=== PATIENT | female | born 1970 | race Caucasian/White ===

== ENCOUNTER → 2016-12-14 | Outpatient (CLI) | payer SELFPAY ==
--- NOTE | 2016-12-15 10:14 | MM ---
Reason for exam: screening (asymptomatic). Last mammogram was performed 1 year and 1 month ago. History: Patient is postmenopausal. Family history of breast cancer in maternal aunt at age 75, breast cancer in paternal grandmother at age 92, and breast cancer in maternal grandmother at age 35. Benign left mammotome panel of the left breast, December 27, 2011. Benign excisional biopsy of the right breast, 1996. Physical Findings: A clinical breast exam by your physician is recommended on an annual basis and results should be correlated with mammographic findings. MG Screening Mammo w CAD Bilateral CC and MLO view(s) were taken. Prior study comparison: November 11, 2015, bilateral MG screening mammo w CAD. August 05, 2014, bilateral MG screening mammo w CAD. There are scattered fibroglandular densities. Finding: There is an equal density (isodense), indistinct round mass in the upper inner quadrant, middle position of the left breast, 8cm from the nipple. There is a chronic nodularity in the right breast. New finding since November 11, 2015 and August 05, 2014. ASSESSMENT: Incomplete: need additional imaging evaluation, BI-RAD 0 RECOMMENDATION: Special view mammogram of the left breast. If lesion persists on supplemental views, image directed ultrasound is recommended. [facility] will attempt to contact patient to return for supplemental views and ultrasound if indicated.
== END | disposition home or self-care (01) ==
LOC: RADMAMWWP 13:15
PROVIDERS: ATTEND Family Medicine
DX: Z12.31 Encounter for screening mammogram for malignant neoplasm of breast (principal)

== ENCOUNTER → 2016-12-22 | Outpatient (CLI) | payer SELFPAY ==
--- NOTE | 2016-12-22 13:27 | MM ---
Reason for exam: additional evaluation requested from abnormal screening. Last mammogram was performed less than 1 month ago. History: Patient is postmenopausal. Family history of breast cancer in maternal aunt at age 75, breast cancer in paternal grandmother at age 92, and breast cancer in maternal grandmother at age 35. Benign left mammotome panel of the left breast, December 27, 2011. Benign excisional biopsy of the right breast, 1996. Physical Findings: Nurse did not find any significant physical abnormalities on exam. MG Work Up Mamm w CAD LT Spot compression CC, spot compression MLO, and ML view(s) were taken of the left breast. Prior study comparison: December 14, 2016, bilateral MG screening mammo w CAD. November 11, 2015, bilateral MG screening mammo w CAD. August 05, 2014, bilateral MG screening mammo w CAD. June 10, 2013, CAD bilateral diagnostic mammogram. There are scattered fibroglandular densities. The questioned focal asymmetry does not appear to persist on additional views suggesting summation shadow, a precautionary 6 month follow up is recommended. These results were verbally communicated with the patient and result sheet given to the patient on 12/22/16. ASSESSMENT: Probably benign, BI-RAD 3 RECOMMENDATION: Follow-up diagnostic mammogram of the left breast in 6 months.
== END | disposition home or self-care (01) ==
LOC: RADMAMWWP 12:42
PROVIDERS: ATTEND Family Medicine
DX: R92.8 Other abnormal and inconclusive findings on diagnostic imaging of breast (principal)

== ENCOUNTER 2017-04-27 16:12 | Emergency (ER) | payer BC ==
[2017-04-27] MEDS ORDERED: PROPARACAINE 0.5% OPHTH DROPS 15 ML BTL LEFT EYE STA (16:48)
--- NOTE | 2017-04-27 17:00 | ED ---
Eye Problem HPI <ChapinFrank - Last Filed: 04/27/17 18:57> - General Source: patient, RN notes reviewed Mode of arrival: ambulatory Limitations: no limitations <Andree Maynard - Last Filed: 04/27/17 20:56> - General Chief complaint: Eye Problems Stated complaint: Poss Mini Stroke Time Seen by Provider: 04/27/17 16:29 - History of Present Illness Initial comments: Patient is a 47-year-old female presents to the emergency room for evaluation of changes in vision. Patient states last year she was diagnosed with a possible mini stroke. Patient states then she had changes in vision in her left eye. Patient states it looked like she was pearing through a kaleidoscope. Patient states that it lasted about 10 minutes and symptoms completely resolved. Patient states she hasn't had any symptoms since until Monday. Patient states on Monday after having sexual intercourse with her she was sitting on the couch and noticed the kaleidoscope-like vision in her left eye. Patient states that the sensation has not subsided. Patient stated this has been going on for the past 5 days. Patient denies paresthesias. Patient denies unilateral weakness. Patient states her left eye does not feel right. Patient states she's having pressure behind her left eye. Patient denies taking any medications. Patient denies new medications. Patient denies wearing glasses or contacts. Patient did state she called her primary care provider this week and has an appointment next week but symptoms worsened today. Patient states she's having a minor headache. Patient states she quit smoking about a year ago. Patient denies alcohol or illicit drug use. (Andree Maynard) - Related Data Home Medications Medication Instructions Recorded Confirmed ALPRAZolam [Xanax] 0.25 mg PO DAILY PRN 04/27/17 04/27/17 Cetirizine HCl [Zyrtec] 10 mg PO HS 04/27/17 04/27/17 Cholecalciferol [Vitamin D3] 1,000 unit PO HS 04/27/17 04/27/17 [place]-3 Fatty Acids/Fish Oil [Fish 1 cap PO HS 04/27/17 04/27/17 Oil 1,000 mg Capsule] Allergies Allergy/AdvReac Type Severity Reaction Status Date / Time No Known Allergies Allergy Verified 04/27/17 16:59 Review of Systems ROS Other: All systems not noted in ROS Statement are negative. <Frank Chapin - Last Filed: 04/27/17 18:57> ROS Other: All systems not noted in ROS Statement are negative. <Andree Maynard - Last Filed: 04/27/17 20:56> ROS Statement: Those systems with pertinent positive or pertinent negative responses have been documented in the HPI. Past Medical History Past Medical History: CVA/TIA History of Any Multi-Drug Resistant Organisms: None Reported Additional Past Surgical History / Comment(s): cyst removed Past Psychological History: No Psychological Hx Reported Smoking Status: Former smoker Past Alcohol Use History: None Reported Past Drug Use History: None Reported <Andree Maynard - Last Filed: 04/27/17 20:56> General Exam <Frank Chapin - Last Filed: 04/27/17 18:57> Limitations: no limitations General appearance: alert, in no apparent distress Head exam: Present: atraumatic, normocephalic, normal inspection Eye exam: Present: normal appearance, PERRL, EOMI Pupils: Present: normal accommodation Expanded Visual acuity (R) = 20/: 15 Visual acuity (L) = 20/: 70 With correction: No IOP (R) in mmH IOP (L) in mmH IOP measured with: [place] ENT exam: Present: normal exam, mucous membranes moist. Absent: normal oropharynx, TM's normal bilaterally Neck exam: Present: normal inspection. Absent: tenderness Respiratory exam: Present: normal lung sounds bilaterally. Absent: respiratory distress Cardiovascular Exam: Present: regular rate, normal rhythm, normal heart sounds Back exam: Present: normal inspection Neurological exam: Present: alert, oriented X3, CN II-XII intact Expanded Patient oriented to: Present: person, place, time Speech: Present: fluid speech Cranial nerves: EOM's Intact: Normal, Facial Sensation: Normal Sensory exam: Upper Extremity Light Touch: Normal, Lower Extremity Light Touch: Normal Motor strength exam: RUE: 5, LUE: 5, RLE: 5, LLE: 5 Eye Response: (4) open spontaneously Motor Response: (6) obeys commands Verbal Response: (5) oriented Psychiatric exam: Present: normal affect, normal mood Skin exam: Present: warm, dry, intact, normal color. Absent: rash <Andree Maynard - Last Filed: 04/27/17 20:56> - General Exam Comments Initial Comments: sitting in exam room, no distress. (Andree Maynard) Medical Decision Making - Lab Data Result diagrams: 04/27/17 16:53 04/27/17 16:53 <Frank Chapin - Last Filed: 04/27/17 18:57> - Lab Data Result diagrams: 04/27/17 16:53 04/27/17 16:53 - Radiology Data Radiology results: report reviewed, image reviewed <Anrdee Maynard - Last Filed: 04/27/17 20:56> - Medical Decision Making Patient reevaluated by myself, Dr. Chapin. Patient resting comfortably in bed. I shocks her muscles intact. Pupils equal round reactive to light. Funduscopic exam without acute findings on the left. Patient states 3 days ago she had sudden episode of blurry vision still is similar to look into a kaleidoscope lasted around 10 minutes. Patient states she has had minimal worsening of her chronic decreased left vision since that time. Patient only complains of minimal discomfort in the left eye. Case was discussed in detail with Dr. abrams will follow up with patient in the morning. (Frank Chapin) - Lab Data Lab Results 04/27/17 04/27/17 04/27/17 Range/Units 16:53 16:53 16:53 WBC 7.4 (3.8-10.6) k/uL RBC 4.42 (3.80-5.40) m/uL Hgb 13.1 (11.4-16.0) gm/dL Hct 39.8 (34.0-46.0) % MCV 90.2 (80.0-100.0) fL MCH 29.7 (25.0-35.0) pg MCHC 32.9 (31.0-37.0) g/dL RDW 13.5 (11.5-15.5) % Plt Count 404 (150-450) k/uL Neutrophils % 68 % Lymphocytes % 26 % Monocytes % 4 % Eosinophils % 1 % Basophils % 1 % Neutrophils # 5.0 (1.3-7.7) k/uL Lymphocytes # 1.9 (1.0-4.8) k/uL Monocytes # 0.3 (0-1.0) k/uL Eosinophils # 0.0 (0-0.7) k/uL Basophils # 0.0 (0-0.2) k/uL PT (9.0-12.0) sec INR (<1.1) APTT (22.0-30.0) sec Sodium 143 (137-145) mmol/L Potassium 4.4 (3.5-5.1) mmol/L Chloride 106 (98-107) mmol/L Carbon Dioxide 26 (22-30) mmol/L Anion Gap 11 mmol/L BUN 19 H (7-17) mg/dL Creatinine 0.81 (0.52-1.04) mg/dL Est GFR (MDRD) Af Amer >60 (>60 ml/min/1.73 sqM) Est GFR (MDRD) Non-Af >60 (>60 ml/min/1.73 sqM) Glucose 104 H (74-99) mg/dL POC Glucose (mg/dL) (75-99) mg/dL POC Glu Programmer Developer ID Calcium 9.6 (8.4-10.2) mg/dL Total Bilirubin 0.6 (0.2-1.3) mg/dL AST 26 (14-36) U/L ALT 30 (9-52) U/L Alkaline Phosphatase 102 (38-126) U/L Total Creatine Kinase 100 (30-135) U/L CK-MB (CK-2) 0.3 (0.0-2.4) ng/mL CK-MB (CK-2) Rel Index 0.3 Troponin I <0.012 (0.000-0.034) ng/mL Total Protein 7.9 (6.3-8.2) g/dL Albumin 4.8 (3.5-5.0) g/dL 04/27/17 04/27/17 Range/Units 16:53 17:59 WBC (3.8-10.6) k/uL RBC (3.80-5.40) m/uL Hgb (11.4-16.0) gm/dL Hct (34.0-46.0) % MCV (80.0-100.0) fL MCH (25.0-35.0) pg MCHC (31.0-37.0) g/dL RDW (11.5-15.5) % Plt Count (150-450) k/uL Neutrophils % % Lymphocytes % % Monocytes % % Eosinophils % % Basophils % % Neutrophils # (1.3-7.7) k/uL Lymphocytes # (1.0-4.8) k/uL Monocytes # (0-1.0) k/uL Eosinophils # (0-0.7) k/uL Basophils # (0-0.2) k/uL PT 10.8 (9.0-12.0) sec INR 1.1 (<1.1) APTT 25.1 (22.0-30.0) sec Sodium (137-145) mmol/L Potassium (3.5-5.1) mmol/L Chloride (98-107) mmol/L Carbon Dioxide (22-30) mmol/L Anion Gap mmol/L BUN (7-17) mg/dL Creatinine (0.52-1.04) mg/dL Est GFR (MDRD) Af Amer (>60 ml/min/1.73 sqM) Est GFR (MDRD) Non-Af (>60 ml/min/1.73 sqM) Glucose (74-99) mg/dL POC Glucose (mg/dL) 93 (75-99) mg/dL POC Glu Programmer Developer ID Reanna Zaldivar Calcium (8.4-10.2) mg/dL Total Bilirubin (0.2-1.3) mg/dL AST (14-36) U/L ALT (9-52) U/L Alkaline Phosphatase (38-126) U/L Total Creatine Kinase (30-135) U/L CK-MB (CK-2) (0.0-2.4) ng/mL CK-MB (CK-2) Rel Index Troponin I (0.000-0.034) ng/mL Total Protein (6.3-8.2) g/dL Albumin (3.5-5.0) g/dL 04/27/17 18:23 sinus bradycardia with sinus arrhythmia, ventricular rate 57 bpm, RI interval 118 ms, QRS duration 90 ms, QT/QTc 458/445 ms (Andree Maynard) Disposition <Frank Chapin - Last Filed: 04/27/17 18:57> Time of Disposition: 19:00 <Andree Maynard - Last Filed: 04/27/17 20:56> Clinical Impression: Blurry vision, left eye Disposition: HOME SELF-CARE Condition: Good Instructions: Blurred Vision (ED) Additional Instructions: Please follow up with commercial sales director, Dr. Oneil at 9 AM tomorrow morning. If any new symptom arises or symptoms worsen, return to ER as soon as possible. Referrals: Cain Oneil MD [STAFF PHYSICIAN] - 1-2 days
[2017-04-27 17:12] LABS: Basophils % (A) 1 %; CH 29.3; CHCM 32.7; Eosinophils % (A) 1 %; HCT 39.8 % (34.0-46.0); HDW 2.28; HGB 13.1 gm/dL (11.4-16.0); Luc # (Auto) 0.11; Luc % (Auto) 1; Lymphocytes # (A) 1.9 k/uL (1.0-4.8); Lymphocytes % (A) 26 %; MCH 29.7 pg (25.0-35.0); MCHC 32.9 g/dL (31.0-37.0); MCV 90.2 fL (80.0-100.0); Mean Platelet Volume 6.5; Monocytes # (A) 0.3 k/uL (0-1.0); Monocytes % (A) 4 %; Neutrophils % (A) 68 %; RBC 4.42 m/uL (3.80-5.40); RDW 13.5 % (11.5-15.5); WBC 7.4 k/uL (3.8-10.6); WBC (Perox) 7.39
[2017-04-27 17:19] LABS: INR 1.1 (<1.1); Partial Thromboplastin Time 25.1 sec (22.0-30.0); Prothrombin Time 10.8 sec (9.0-12.0)
[2017-04-27 17:21] LABS: ALT 30 U/L (9-52); AST 26 U/L (14-36); Alkaline Phosphatase 102 U/L (38-126); Anion Gap 11 mmol/L; Blood Urea Nitrogen 19 mg/dL (7-17); Calcium 9.6 mg/dL (8.4-10.2); Carbon Dioxide 26 mmol/L (22-30); Chloride 106 mmol/L (98-107); Glucose 104 mg/dL (74-99); Non-African American GFR(MDRD) >60 (>60 ml/min/1.73 sqM); Potassium 4.4 mmol/L (3.5-5.1); Sodium 143 mmol/L (137-145); Total Bilirubin 0.6 mg/dL (0.2-1.3); Total Protein 7.9 g/dL (6.3-8.2)
[2017-04-27 17:30] LABS: Creatine Kinase 100 U/L (30-135)
[2017-04-27 17:43] LABS: Creatine Kinase MB 0.3 ng/mL (0.0-2.4); Troponin I <0.012 ng/mL (0.000-0.034)
--- NOTE | 2017-04-27 17:43 | CT ---
EXAMINATION TYPE: CT brain wo con DATE OF EXAM: 04/27/2017 COMPARISON: NONE HISTORY: History of TIA. Dizziness, nausea and visual disturbances today. CT DLP: 999.80 mGycm Automated exposure control for dose reduction was used. FINDINGS: Ventricles and sulci appear normal. There is no mass effect nor midline shift. There is no sign of in tracranial hemorrhage. The calvarium is intact. IMPRESSION: Negative unenhanced head CT scan.
[2017-04-27 18:01] VITALS: BP 138/71; RESP 18
[2017-04-27 18:03] LABS: Glucose,Whole Blood 93 mg/dL (75-99)
[2017-04-27 19:13] VITALS: PULSE 54; TEMP 98.6
== END 2017-04-27 19:13 | disposition home or self-care (01) ==
LOC: EC 16:12
DX: H53.8 Other visual disturbances (principal); R51 Headache; Z87.891 Personal history of nicotine dependence; Z79.899 Other long term (current) drug therapy; Z86.73 Personal history of transient ischemic attack (TIA), and cerebral infarction without residual deficits
CPT/HCPCS: 36415; 70450; 80053; 82550; 82553; 84484; 85025; 85610; 85730; 93005; 99284

== ENCOUNTER → 2018-05-15 | Outpatient (CLI) | payer BC ==
--- NOTE | 2018-05-15 14:02 | MM ---
Reason for exam: additional evaluation requested from prior study. Last mammogram was performed 1 year and 5 months ago. History: Patient is postmenopausal. Family history of breast cancer in maternal aunt at age 75, breast cancer in paternal grandmother at age 92, and breast cancer in maternal grandmother at age 35. Benign left mammotome panel of the left breast, December 27, 2011. Benign excisional biopsy of the right breast, 1996. Physical Findings: Nurse did not find any significant physical abnormalities on exam. MG Diagnostic Mammo w CAD SERGIO Bilateral CC and MLO view(s) were taken. Prior study comparison: December 22, 2016, left breast MG work up mamm w CAD LT. December 14, 2016, bilateral MG screening mammo w CAD. The breast tissue is heterogeneously dense. This may lower the sensitivity of mammography. Previous mammotome biopsy in the left breast. There is no discrete abnormality. No significant new findings when compared with previous films. These results were verbally communicated with the patient and result sheet given to the patient on 05/15/18. ASSESSMENT: Negative, BI-RAD 1 RECOMMENDATION: Routine screening mammogram of both breasts in 1 year.
== END | disposition home or self-care (01) ==
LOC: RADMAMWWP 13:22
PROVIDERS: ATTEND Family Medicine
DX: R92.8 Other abnormal and inconclusive findings on diagnostic imaging of breast (principal)
CPT/HCPCS: 77066

== ENCOUNTER 2019-07-16 16:03 | Observation (INO) | payer BC ==
[2019-07-16] MEDS ORDERED: NITROGLYCERIN OINT 1 INCH/GM PACKET TOPICAL STA (16:55)
[2019-07-16] MEDS ORDERED: ASPIRIN 81 MG PO STA (16:55)
--- NOTE | 2019-07-16 16:58 | ED ---
General Adult HPI - General Chief complaint: Chest Pain Stated complaint: chest pain Time Seen by Provider: 07/16/19 16:19 Source: patient, RN notes reviewed Mode of arrival: wheelchair Limitations: no limitations - History of Present Illness Initial comments: Patient is a pleasant 49-year-old female presenting to the emergency Department with complaints of chest discomfort. Onset of symptoms was a couple of days ago. Discomfort is waxing and waning. [place] seems to help a little bit for a very short period of time. Patient does have associated dyspnea, nausea, and sweating. Patient also feels fatigued. Patient has been feeling fatigued for the past week or so. No leg pain or leg swelling. No cough or fever. No history of similar symptoms previously. There is some radiation towards the shoulders and back. - Related Data Home Medications Medication Instructions Recorded Confirmed ALPRAZolam [Xanax] 0.25 mg PO DAILY PRN 04/27/17 07/16/19 Hydrocodone/Acetaminophen [[place] 0.5 tab PO DAILY PRN 07/16/19 07/16/19 7.5-325] Allergies Allergy/AdvReac Type Severity Reaction Status Date / Time No Known Allergies Allergy Verified 07/16/19 17:13 Review of Systems ROS Statement: Those systems with pertinent positive or pertinent negative responses have been documented in the HPI. ROS Other: All systems not noted in ROS Statement are negative. Constitutional: Denies: fever Eyes: Denies: eye pain ENT: Denies: ear pain Respiratory: Reports: dyspnea. Denies: cough Cardiovascular: Reports: chest pain Endocrine: Reports: fatigue Gastrointestinal: Reports: nausea. Denies: abdominal pain Genitourinary: Denies: urgency Musculoskeletal: Reports: as per HPI Skin: Denies: rash Neurological: Denies: weakness Past Medical History Past Medical History: CVA/TIA History of Any Multi-Drug Resistant Organisms: None Reported Additional Past Surgical History / Comment(s): cyst removed Past Psychological History: No Psychological Hx Reported Smoking Status: Former smoker Past Alcohol Use History: Rare Past Drug Use History: Marijuana General Exam Limitations: no limitations General appearance: alert, in no apparent distress Head exam: Present: atraumatic Eye exam: Present: normal appearance, PERRL ENT exam: Present: normal oropharynx Neck exam: Present: normal inspection Respiratory exam: Present: normal lung sounds bilaterally, chest wall tenderness (Mild discomfort on palpation.) Cardiovascular Exam: Present: regular rate, normal rhythm Expanded Peripheral pulses: 2+: Radial (R), Radial (L), Dorsalis Pedis (R), Dorsalis Pedis (L) GI/Abdominal exam: Present: soft. Absent: tenderness Extremities exam: Present: normal inspection. Absent: pedal edema, calf tenderness Neurological exam: Present: alert Psychiatric exam: Present: normal affect, normal mood Skin exam: Present: normal color Course Vital Signs 07/16/19 16:06 Temperature 98.8 F Pulse Rate 75 Respiratory 16 Rate Blood Pressure 145/83 O2 Sat by Pulse 100 Oximetry EKG Findings - EKG Comments: EKG Findings:: Normal sinus rhythm 60. VT 122. QRS 86. QT 474. QTC 474. Normal axis. Low QRS voltage. No acute ST change. Medical Decision Making - Medical Decision Making Patient reevaluated and resting comfortably in bed. Patient updated on results and plan. Dr. barrientos paged for admission covering for Dr. King. - Lab Data Result diagrams: 07/16/19 17:27 07/16/19 17:27 Lab Results 07/16/19 07/16/19 07/16/19 Range/Units 17:27 17:27 17:27 WBC 9.5 (3.8-10.6) k/uL RBC 4.90 (3.80-5.40) m/uL Hgb 13.7 (11.4-16.0) gm/dL Hct 43.1 (34.0-46.0) % MCV 88.0 (80.0-100.0) fL MCH 28.0 (25.0-35.0) pg MCHC 31.8 (31.0-37.0) g/dL RDW 13.5 (11.5-15.5) % Plt Count 453 H (150-450) k/uL Neutrophils % 71 % Lymphocytes % 21 % Monocytes % 5 % Eosinophils % 1 % Basophils % 0 % Neutrophils # 6.7 (1.3-7.7) k/uL Lymphocytes # 2.0 (1.0-4.8) k/uL Monocytes # 0.4 (0-1.0) k/uL Eosinophils # 0.1 (0-0.7) k/uL Basophils # 0.0 (0-0.2) k/uL PT 10.8 (9.0-12.0) sec INR 1.0 (<1.2) APTT 26.9 (22.0-30.0) sec D-Dimer 0.19 (<0.60) mg/L FEU Sodium 143 (137-145) mmol/L Potassium 4.1 (3.5-5.1) mmol/L Chloride 109 H (98-107) mmol/L Carbon Dioxide 27 (22-30) mmol/L Anion Gap 7 mmol/L BUN 15 (7-17) mg/dL Creatinine 0.60 (0.52-1.04) mg/dL Est GFR (CKD-EPI)AfAm >90 (>60 ml/min/1.73 sqM) Est GFR (CKD-EPI)NonAf >90 (>60 ml/min/1.73 sqM) Glucose 93 (74-99) mg/dL Calcium 9.5 (8.4-10.2) mg/dL Magnesium 2.0 (1.6-2.3) mg/dL Total Bilirubin 0.5 (0.2-1.3) mg/dL AST 23 (14-36) U/L ALT 23 (9-52) U/L Alkaline Phosphatase 108 (38-126) U/L Troponin I (0.000-0.034) ng/mL Total Protein 7.4 (6.3-8.2) g/dL Albumin 4.5 (3.5-5.0) g/dL Amylase 76 (30-110) U/L Lipase 69 (23-300) U/L 07/16/ Range/Units 17:27 WBC (3.8-10.6) k/uL RBC (3.80-5.40) m/uL Hgb (11.4-16.0) gm/dL Hct (34.0-46.0) % MCV (80.0-100.0) fL MCH (25.0-35.0) pg MCHC (31.0-37.0) g/dL RDW (11.5-15.5) % Plt Count (150-450) k/uL Neutrophils % % Lymphocytes % % Monocytes % % Eosinophils % % Basophils % % Neutrophils # (1.3-7.7) k/uL Lymphocytes # (1.0-4.8) k/uL Monocytes # (0-1.0) k/uL Eosinophils # (0-0.7) k/uL Basophils # (0-0.2) k/uL PT (9.0-12.0) sec INR (<1.2) APTT (22.0-30.0) sec D-Dimer (<0.60) mg/L FEU Sodium (137-145) mmol/L Potassium (3.5-5.1) mmol/L Chloride (98-107) mmol/L Carbon Dioxide (22-30) mmol/L Anion Gap mmol/L BUN (7-17) mg/dL Creatinine (0.52-1.04) mg/dL Est GFR (CKD-EPI)AfAm (>60 ml/min/1.73 sqM) Est GFR (CKD-EPI)NonAf (>60 ml/min/1.73 sqM) Glucose (74-99) mg/dL Calcium (8.4-10.2) mg/dL Magnesium (1.6-2.3) mg/dL Total Bilirubin (0.2-1.3) mg/dL AST (14-36) U/L ALT (9-52) U/L Alkaline Phosphatase (38-126) U/L Troponin I <0.012 (0.000-0.034) ng/mL Total Protein (6.3-8.2) g/dL Albumin (3.5-5.0) g/dL Amylase (30-110) U/L Lipase (23-300) U/L - Radiology Data Radiology results: image reviewed (Chest x-ray shows no acute process) Disposition Clinical Impression: Chest pain Disposition: ADMITTED IP TO THIS HOSP Is patient prescribed a controlled substance at d/c from ED?: No Referrals: Lincoln King MD [Primary Care Provider] - 1-2 days Decision Time: 19:05
[2019-07-16 17:39] LABS: Basophils % (A) 0 %; Eosinophils # (A) 0.1 k/uL (0-0.7); Eosinophils % (A) 1 %; HCT 43.1 % (34.0-46.0); HGB 13.7 gm/dL (11.4-16.0); Lymphocytes % (A) 21 %; MCHC 31.8 g/dL (31.0-37.0); Mean Platelet Volume 6.5; Monocytes # (A) 0.4 k/uL (0-1.0); Monocytes % (A) 5 %; Neutrophils # (A) 6.7 k/uL (1.3-7.7); Neutrophils % (A) 71 %; Platelet Count 453 k/uL (150-450); RDW 13.5 % (11.5-15.5); WBC 9.5 k/uL (3.8-10.6)
[2019-07-16 17:47] LABS: Albumin 4.5 g/dL (3.5-5.0); Amylase 76 U/L (30-110); Chloride 109 mmol/L (98-107); Glucose 93 mg/dL (74-99); Potassium 4.1 mmol/L (3.5-5.1); Total Protein 7.4 g/dL (6.3-8.2)
[2019-07-16 17:48] LABS: ALT 23 U/L (9-52); AST 23 U/L (14-36); African American GFR (CKD) >90 (>60 ml/min/1.73 sqM); Alkaline Phosphatase 108 U/L (38-126); Anion Gap 7 mmol/L; Blood Urea Nitrogen 15 mg/dL (7-17); Calcium 9.5 mg/dL (8.4-10.2); Carbon Dioxide 27 mmol/L (22-30); Sodium 143 mmol/L (137-145); Total Bilirubin 0.5 mg/dL (0.2-1.3)
[2019-07-16 17:51] LABS: D-Dimer 0.19 mg/L FEU (<0.60); Partial Thromboplastin Time 26.9 sec (22.0-30.0); Prothrombin Time 10.8 sec (9.0-12.0)
--- NOTE | 2019-07-16 18:40 | XR ---
EXAMINATION: XR chest 2V DATE AND TIME: 07/16/2019 5:36 PM CLINICAL INDICATION: PHH; Chest Pain TECHNIQUE: Departmental protocol COMPARISON: None FINDINGS: The lungs are clear. The pleural spaces are negative. The cardiac silhouette is not enlarged. The remainder of the mediastinal silhouette is unremarkable. The skeletal structures and soft tissues are negative for acute findings. IMPRESSION: NO ACUTE PROCESS.
[2019-07-16] MEDS ORDERED: NITROGLYCERIN SL TABS 0.4 MG TAB SUBLINGUAL PRN (19:05)
[2019-07-17] MEDS: NITROGLYCERIN OINT 1 INCH/GM PACKET TOPICAL SCH ×2 (00:51→05:49)
[2019-07-17 05:56] LABS: Cholesterol 232 mg/dL (<200); HDL Cholesterol 47 mg/dL (40-60); LDL Cholesterol,Calculated 160 mg/dL (0-99); Triglycerides 127 mg/dL (<150)
[2019-07-17] MEDS ORDERED: SODIUM CHLORIDE 0.9% 1,000 ML IV SCH (08:15)
[2019-07-17] MEDS ORDERED: ASPIRIN 325 MG TAB PO SCH (09:00)
[2019-07-17 09:02] VITALS: RESP 17
[2019-07-17] MEDS ORDERED: HYDROcodone/APAP 7.5-325MG 1 EACH TAB PO PRN (09:47)
[2019-07-17] MEDS ORDERED: ALPRAZolam 0.25 MG TAB PO PRN (09:47)
--- NOTE | 2019-07-17 10:35 | ECHOF ---
Referral Reason:palpitations, pre syncope MEASUREMENTS -------- HEIGHT: 154.9 cm WEIGHT: 65.8 kg BP: RVIDd: 1.9 cm (< 3.3) IVSd: 0.8 cm (0.6 - 1.1) LVIDd: 4.6 cm (3.9 - 5.3) LVPWd: 1.0 cm (0.6 - 1.1) IVSs: 0.9 cm LVIDs: 3.5 cm LVPWs: 1.4 cm LAESV Index (A-L): 13.27 ml/m Ao Diam: 2.6 cm (2.0 - 3.7) AV Cusp: 1.5 cm (1.5 - 2.6) LA Diam: 2.5 cm (2.7 - 3.8) MV EXCURSION: 16.095 mm (> 18.000) MV EF SLOPE: 106 mm/s (70 - 150) EPSS: 1.0 cm MV E Froylan: 1.03 m/s MV DecT: 226 ms MV A Froylan: 0.73 m/s MV E/A Ratio: 1.40 RAP: 5.00 mmHg RVSP: 11.56 mmHg FINDINGS -------- Sinus rhythm. This was a technically good study. The left ventricular size is normal. Left ventricular wall thickness is normal. Overall left vent ricular systolic function is normal with, an EF between 55 - 60 %. The right ventricle is normal in size. The left atrial size is normal. Normal LA size by volume 22+/-6 ml/m2. The right atrial size is normal. Interatrial and interventricular septum intact. The aortic valve is trileaflet and appears structurally normal. The mitral valve is normal. Mild mitral regurgitation is present. The tricuspid valve appears structurally normal. Trace tricuspid regurgitation present. Right xiang tricular systolic pressure is normal at < 35 mmHg. There is no pulmonic regurgitation present. The aortic root size is normal. Normal inferior vena cava with normal inspiratory collapse consistent with estimated right atrial pre ssure of 5 mmHg. There is no pericardial effusion. CONCLUSIONS -------- 1. Sinus rhythm. 2. This was a technically good study. 3. The left ventricular size is normal. 4. Left ventricular wall thickness is normal. 5. Overall left ventricular systolic function is normal with, an EF between 55 - 60 %. 6. The right ventricle is normal in size. 7. The left atrial size is normal. 8. Normal LA size by volume 22+/-6 ml/m2. 9. The right atrial size is normal. 10. Interatrial and interventricular septum intact. 11. The aortic valve is trileaflet and appears structurally normal. 12. The mitral valve is normal. 13. Mild mitral regurgitation is present. 14. The tricuspid valve appears structurally normal. 15. Trace tricuspid regurgitation present. 16. Right ventricular systolic pressure is normal at < 35 mmHg. 17. There is no pulmonic regurgitation present. 18. The aortic root size is normal. 19. Normal inferior vena cava with normal inspiratory collapse consistent with estimated right atrial pressure of 5 mmHg. 20. There is no pericardial effusion. INSTRUCTOR TAP DANCING: Ludivina Arita RDCS
--- NOTE | 2019-07-17 12:37 | ECHOS ---
STRESS ECHOCARDIOGRAM INDICATIONS: Chest pain and fatigue. MEDICATIONS: None. BASELINE HEART RATE: 76 BASELINE BLOOD PRESSURE: 111/60 MAXIMUM HEART RATE: 169 MAXIMUM BLOOD PRESSURE: 144/77 85% MPHR: 145 100% MPHR: 170 METS: 9.0 MAXIMUM STAGE REACHED: III TOTAL EXERCISE TIME: 7.5 CLINICAL INFORMATION: Baseline EKG shows sinus rhythm, normal axis, normal intervals. Patient exercised on Abiel protocol for a total of 7.5 minutes achieving 9 METS, 99% of predicted maximal heart rate without chest pain. There was no ST-segment depression at peak exercise. There was lot of EKG artifact throughout the study. Baseline echo shows normal left ventricular size wall motion and systolic function. Postexercise, there is normal hyperdynamic response of all segments of myocardium noted. CONCLUSIONS: 1. Technically suboptimal study secondary to EKG artifact. 2. Average exercise tolerance. 3. Negative stress test by EKG criteria. 4. Negative stress echo. MMODL / IJN: [id number] /
[2019-07-17 13:24] VITALS: BP 120/78; PULSE 62; TEMP 98.2
--- NOTE | 2019-07-17 13:37 | P.CRDCN ---
History of Present Illness History of present illness: This is a pleasant 49-year-old female past medical history significant for former nicotine dependence. Denies coronary artery disease, hypertension, diabetes mellitus or dyslipideima. We have been asked to see her in consultation for chest pain. She states for the last 2 weeks she has been experiencing increased overall fatigue with no real explanation. She denies any new physical activities or loss of appetite. For the last three nights each time she lays down to sleep she starts feeling her heart racing in an irregular fashion. While this is happening her chest feels tight, overall diaphoretic, light headed and both of her arms feel numb and tingly. Ultimately she falls asleep and her symptoms subside. She did not have any symptoms since arriving in the hospital. EKG reveals sinus mechanism with poor R-wave progression. No acute ST changes. Chest xray negative for an acute cardiopulmonary process. Laboratory data reviewed, WBC 9.5, hgb 13.7, plt 453, d-dimer 0.19, sodium 143, potassium 4.1, creatinine 0.6, magnesium 2.0, cardiac enzymes negative x3, LDL 160, total cholesterol 232 and TSH 2.33. She takes no daily cardiac medications. At the time of my exam: CONSTITUTIONAL: Denies fever. Denies chills. EYES: Denies blurred vision. Denies vision changes. Denies eye pain. EARS, NOSE, MOUTH & THROAT: Denies headache. Denies sore throat. Denies ear pain. CARDIOVASCULAR: Denies chest pain. Denies shortness of breath. Denies orthopnea. Denies PND. Denies palpitations. RESPIRATORY: Denies cough. GASTROINTESTINAL: Denies abdominal pain. Denies diarrhea. Denies constipation. Denies nausea. Denies vomiting. MUSCULOSKELETAL: Denies myalgias. INTEGUMENTARY: Denies pruitis. Denies rash. NEUROLOGIC: Denies numbness. Denies tingling. Denies weakness. PSYCHIATRIC: Denies anxiety. Denies depression. ENDOCRINE: Denies fatigue. Denies weight change. Denies polydipsia. Denies polyurina. GENITOURINARY: Denies burning, hematuria or urgency with micturation. HEMATOLOGIC: Denies history of anemia. Denies bleeding. Blood pressure 120/78 heart rate 62 afebrile maintaining oxygen saturation on room air GENERAL: This is a 49-year-old female in no apparent distress at the time of my examination. HEENT: Head is atraumatic, normocephalic. Pupils are equal, round. Sclerae anicteric. Conjunctivae are clear. Mucous membranes of the mouth are moist. Neck is supple. There is no jugular venous distention. No carotid bruit is heard. LUNGS: Clear to auscultation no wheezes, rales or rhonchi. No chest wall tenderness is noted on palpation or with deep breathing. HEART: Regular rate and rhythm without murmurs, rubs or gallops. S1 and S2 heard. ABDOMEN: Soft, nontender. Bowel sounds are heard. No organomegaly noted. EXTREMITIES: No evidence of peripheral edema and no calf tenderness noted. VASCULAR: Radial and dorsalis pedis pulses palpated, no evidence of clubbing. NEUROLOGIC: Patient is awake, alert and oriented x3. ASSESSMENT Palpitations associated with chest discomfort and progressive fatigue. Atypical for angina. An acute coronary event has been ruled out. Dyslipidemia Former nicotine dependence PLAN An acute coronary event has been ruled out. Obtain 2-D echocardiogram and Doppler study to assess cardiac structure and function. Perform stress echocardiogram to assess for stress-induced ischemia. If diagnostic testing is normal out-patient heart monitoring discussed. Follow-up in the office with Dr. Baker. Thank you kindly for this consultation. Nurse Practitioner note has been reviewed, I agree with a documented findings an d plan of care. Patient was seen and examined. Past Medical History Past Medical History: CVA/TIA History of Any Multi-Drug Resistant Organisms: None Reported Additional Past Surgical History / Comment(s): cyst removed Past Anesthesia/Blood Transfusion Reactions: Postoperative Nausea & Vomiting (PONV) Past Psychological History: No Psychological Hx Reported Smoking Status: Former smoker Past Alcohol Use History: Rare Past Drug Use History: Marijuana - Past Family History Mother Additional Family Medical History / Comment(s): ovarian cancer Medications and Allergies Home Medications Medication Instructions Recorded Confirmed Type ALPRAZolam [Xanax] 0.25 mg PO DAILY PRN 04/27/17 07/16/19 History Hydrocodone/Acetaminophen [[place] 0.5 tab PO DAILY PRN 07/16/19 07/16/19 History 7.5-325] Allergies Allergy/AdvReac Type Severity Reaction Status Date / Time No Known Allergies Allergy Verified 07/16/19 22:04 Physical Exam Vitals: Vital Signs Temp Pulse Pulse Resp BP BP Pulse Ox 07/17/19 02:44 98.1 F 58 L 18 103/55 98 07/17/19 00:00 98 F 55 L 18 96/58 99 07/16/19 21:32 100/60 07/16/19 21:00 76 92/46 07/16/19 20:00 98.1 F 73 51 L 18 112/76 121/71 96 07/16/19 19:33 98.1 F 51 L 121/71 96 07/16/19 16:06 98.8 F 75 16 145/83 100 Intake and Output 07/16/19 07/17/19 07/17/19 22:59 06:59 14:59 Intake Total 0 0 Balance 0 0 Intake: Oral 0 0 Other: Weight 65.771 kg Results 07/16/19 17:27 07/16/19 17:27 Cardiac Enzymes 07/16/19 07/16/19 07/16/19 Range/Units 17:27 17:27 23:44 AST 23 (14-36) U/L Troponin I <0.012 <0.012 (0.000-0.034) ng/mL 07/17/19 Range/Units 05:15 AST (14-36) U/L Troponin I <0.012 (0.000-0.034) ng/mL Coagulation 07/16/19 Range/Units 17:27 PT 10.8 (9.0-12.0) sec APTT 26.9 (22.0-30.0) sec Lipids 07/17/19 Range/Units 05:15 Triglycerides 127 (<150) mg/dL Cholesterol 232 H (<200) mg/dL HDL Cholesterol 47 (40-60) mg/dL CBC 07/16/19 Range/Units 17:27 WBC 9.5 (3.8-10.6) k/uL RBC 4.90 (3.80-5.40) m/uL Hgb 13.7 (11.4-16.0) gm/dL Hct 43.1 (34.0-46.0) % Plt Count 453 H (150-450) k/uL Comprehensive Metabolic Panel 07/16/19 Range/Units 17:27 Sodium 143 (137-145) mmol/L Potassium 4.1 (3.5-5.1) mmol/L Chloride 109 H (98-107) mmol/L Carbon Dioxide 27 (22-30) mmol/L BUN 15 (7-17) mg/dL Creatinine 0.60 (0.52-1.04) mg/dL Glucose 93 (74-99) mg/dL Calcium 9.5 (8.4-10.2) mg/dL AST 23 (14-36) U/L ALT 23 (9-52) U/L Alkaline Phosphatase 108 (38-126) U/L Total Protein 7.4 (6.3-8.2) g/dL Albumin 4.5 (3.5-5.0) g/dL Current Medications Generic Name Dose Route Start Last Admin Trade Name Freq PRN Reason Stop Dose Admin Aspirin 325 mg 07/17/19 09:00 Aspirin PO DAILY [facility] Nitroglycerin 1 inch 07/17/19 00:00 07/17/19 05:49 Nitro-Bid Oint TOPICAL Not Given Q6HR [facility] Nitroglycerin 0.4 mg 07/16/19 19:05 Nitrostat SUBLINGUAL Q5M PRN Chest Pain Intake and Output 07/16/19 07/17/19 07/17/19 22:59 06:59 14:59 Intake Total 0 0 Balance 0 0 Intake: Oral 0 0 Other: Weight 65.771 kg 07/16/19 17:27 07/16/19 17:27
--- NOTE | 2019-07-18 00:33 | P.HPIM ---
History of Present Illness H&P Date: 07/17/19 Chief Complaint: Chest pain History of presenting complaint: This is a very pleasant 49-year-old patient of Dr. King. Unremarkable past medical history. Patient's been on a ketogenic diet for a few weeks. For last 1 week started feeling unwell. Had an episode she became clammy and sweaty at her work. Does work as a association executive of the restaurant. Also had an episode of h er heart racing. [place] a bit dizzy. Decided to come in to the ER. For further workup. Cartilage was consulted. Had slight chest tightness. No chest pain as such. at the bedside. Otherwise in good health. Review of systems: GEN.: Tired EYES: None HEENT: None NECK: None RESPIRATORY: None CARDIOVASCULAR: As above GASTROINTESTINAL: None GENITOURINARY: None MUSCULOSKELETAL: None LYMPHATICS: None HEMATOLOGICAL: None PSYCHIATRY: None NEUROLOGICAL: Some dizziness Social history: Smoked for 30 years. Stopped 3 years ago. Alcohol occasionally. . Works as a association executive Family history: Ovarian cancer Physical examination: VITAL SIGNS: 98.8, 75, 16, 145/83, 100% room air GENERAL: Average built, sitting up, comfortable. EYES: Pupils equal. Conjunctiva normal. HEENT: External appearance of nose and ears normal, oral cavity grossly normal. NECK: JVD not raised; masses not palpable. HEART: First and second heart sounds are normal; no edema. LUNGS: Respiratory rate normal; clear to auscultation. ABDOMEN: Soft, nontender, liver spleen not palpable, no masses palpable. PSYCH: Alert and oriented x3; mood and affect normal. NEUROLOGICAL: Cranial nerves grossly intact; no facial asymmetry, power and sensation grossly intact. LYMPHATICS: No lymph nodes palpable in the axilla and neck INVESTIGATIONS, reviewed in the clinical context: White count 9.5 hemoglobin 13.7 potassium 4.1 creatinine 0.6 Troponin I 3 negative EKG tracing personally reviewed by me shows normal sinus rhythm Chest x-ray film personally reviewed by me shows lung diaz to be clear Assessment: -Patient presents episode of feeling unwell cold clammy sweaty dizziness some chest tightness heart racing. Rule out a cardiac cause. Patient has been on a ketogenic diet this could be a metabolic manifestation of the same. Rule out atypical angina Plan: Cardiology was consulted. They ordered a stress echocardiogram. Patient also received Nitropaste and aspirin. Past Medical History Past Medical History: CVA/TIA History of Any Multi-Drug Resistant Organisms: None Reported Additional Past Surgical History / Comment(s): cyst removed Past Anesthesia/Blood Transfusion Reactions: Postoperative Nausea & Vomiting (PONV) Past Psychological History: No Psychological Hx Reported Smoking Status: Former smoker Past Alcohol Use History: Rare Past Drug Use History: Marijuana - Past Family History Mother Additional Family Medical History / Comment(s): ovarian cancer Medications and Allergies Home Medications Medication Instructions Recorded Confirmed Type ALPRAZolam [Xanax] 0.25 mg PO DAILY PRN 04/27/17 07/16/19 History Hydrocodone/Acetaminophen [[place] 0.5 tab PO DAILY PRN 07/16/19 07/16/19 History 7.5-325] Atorvastatin Calcium [Lipitor] 20 mg PO HS #30 tab 07/17/19 Rx Allergies Allergy/AdvReac Type Severity Reaction Status Date / Time No Known Allergies Allergy Verified 07/16/19 22:04 Physical Exam Vitals: Vital Signs Temp Pulse Pulse Pulse Resp BP BP 07/17/19 09:29 07/17/19 08:00 97.8 F 64 17 07/17/19 02:44 98.1 F 58 L 18 103/55 07/17/19 00:00 98 F 55 L 18 96/58 07/16/19 21:32 100/60 07/16/19 21:00 76 92/46 07/16/19 20:00 98.1 F 73 51 L 18 112/76 121/71 07/16/19 19:33 98.1 F 51 L 121/71 07/16/19 16:06 98.8 F 75 16 145/83 BP BP BP Pulse Ox 07/17/19 09:29 131/76 122/72 127/70 07/17/19 08:00 124/75 98 07/17/19 02:44 98 07/17/19 00:00 99 07/16/19 21:32 07/16/19 21:00 07/16/19 20:00 96 07/16/19 19:33 96 07/16/19 16:06 100 Intake and Output 07/16/19 07/17/19 07/17/19 22:59 06:59 14:59 Intake Total 0 0 Balance 0 0 Intake: Oral 0 0 Other: Weight 65.771 kg Results CBC & Chem 7: 07/16/19 17:27 07/16/19 17:27 Labs: Abnormal Lab Results - Last 24 Hours (Table) 07/16/19 07/16/19 07/17/19 Range/Units 17: 17: 05:15 Plt Count 453 H (150-450) k/uL Chloride 109 H (98-107) mmol/L Cholesterol 232 H (<200) mg/dL LDL Cholesterol, Calc 160 H (0-99) mg/dL Thrombosis Risk Factor Assmnt - Choose All That Apply Any of the Below Risk Factors Present?: No Other Risk Factors: No Other congenital or acquired thrombophilia - If yes, enter type in comment: No Thrombosis Risk Factor Assessment Level: Very Low Risk
--- NOTE | 2019-07-18 00:36 | P.DS ---
Providers Date of admission: 07/16/19 19:06 Expected date of discharge: 07/17/19 Attending physician: Js Hoover Consults: 07/16/19 19:06 Consult Physician Urgent Consulting Provider: Manuel Tidwell Consult Reason/Comments: cp Do you want consulting provider notified?: Yes Primary care physician: Lincoln Fernando [facility] Hospital Course: Hospital course: This is a very pleasant 49-year-old patient of Dr. King. Unremarkable past medical history. Patient's been on a ketogenic diet for a few weeks. For last 1 week started feeling unwell. Had an episode she became clammy and sweaty at her work. Does work as a school physical therapist of the restaurant. Also had an episode of her heart racing. [place] a bit dizzy. Decided to come in to the ER. For further workup. Cartilage was consulted. Had slight chest tightness. No chest pain as such. at the bedside. Otherwise in good health. Troponins were negative. 2-D echocardiogram was unremarkable. Stress echocardiogram was negative. Consultation: Dr. Barb Baker from cardiology Physical examination: VITAL SIGNS: 98.1, 51, 18, 1 21 x 71, 96% room air GENERAL: Average built, sitting up, comfortable. EYES: Pupils equal. Conjunctiva normal. HEENT: External appearance of nose and ears normal, oral cavity grossly normal. NECK: JVD not raised; masses not palpable. HEART: First and second heart sounds are normal; no edema. LUNGS: Respiratory rate normal; clear to auscultation. ABDOMEN: Soft, nontender, liver spleen not palpable, no masses palpable. PSYCH: Alert and oriented x3; mood and affect normal. INVESTIGATIONS, reviewed in the clinical context: White count 9.5 hemoglobin 13.7 potassium 4.1 creatinine 0.6 Troponin I 3 negative EKG tracing personally reviewed by me shows normal sinus rhythm Chest x-ray film personally reviewed by me shows lung diaz to be clear 2-D echocardiogram and stress echocardiogram unremarkable LDL 169 TSH 2.3 Final diagnosis: -Atypical chest pain, could be related to anxiety/psychosomatic -Hyperlipidemia Disposition: Home Patient Condition at Discharge: Stable Plan - Discharge Summary New Discharge Prescriptions: New Atorvastatin Calcium [Lipitor] 20 mg PO HS #30 tab Continue ALPRAZolam [Xanax] 0.25 mg PO DAILY PRN PRN Reason: Anxiety Hydrocodone/Acetaminophen [[place] 7.5-325] 0.5 tab PO DAILY PRN PRN Reason: Pain Discharge Medication List ALPRAZolam [Xanax] 0.25 mg PO DAILY PRN 04/27/17 [History] Hydrocodone/Acetaminophen [[place] 7.5-325] 0.5 tab PO DAILY PRN 07/16/19 [History] Atorvastatin Calcium [Lipitor] 20 mg PO HS #30 tab 07/17/19 [Rx] Follow up Appointment(s)/Referral(s): Bryant Lr MD [STAFF PHYSICIAN] - 07/18/19 10:00 am Michael Baker MD [STAFF PHYSICIAN] - 08/12/19 3:15 pm (follow up with Dr. Baker as scheduled for you) Patient Instructions/Handouts: Chest Pain (GEN) Activity/Diet/Wound Care/Special Instructions: Patient to call and inform insurance company of new physician before appointment
== END 2019-07-17 16:57 ==
LOC: EC 16:03 → 1SOBS 19:06
PROVIDERS: ADMIT Hospitalist; ATTEND Hospitalist
DX: R07.89 Other chest pain (principal); E78.5 Hyperlipidemia, unspecified; R11.0 Nausea; R06.00 Dyspnea, unspecified; R61 Generalized hyperhidrosis; R53.83 Other fatigue; R23.1 Pallor; R00.2 Palpitations; R20.0 Anesthesia of skin; R42 Dizziness and giddiness; R00.0 Tachycardia, unspecified; R20.2 Paresthesia of skin; Z79.899 Other long term (current) drug therapy; Z88.5 Allergy status to narcotic agent; Z86.73 Personal history of transient ischemic attack (TIA), and cerebral infarction without residual deficits; Z87.891 Personal history of nicotine dependence; Z80.41 Family history of malignant neoplasm of ovary
CPT/HCPCS: 99285; 36415; 93005; 93306; 93270; 93351; 85379; 80061; 80053; 84443; 82150; 83690; 83735; 84484 ×2; 85025; 85610; 85730; 71046; G0378 ×2

== ENCOUNTER → 2019-08-27 | Outpatient (CLI) | payer BC ==
--- NOTE | 2019-08-30 09:13 | MM ---
Reason for exam: screening (asymptomatic). Last mammogram was performed 1 year and 3 months ago. History: Patient is postmenopausal. Family history of breast cancer in maternal aunt at age 75, breast cancer in paternal grandmother at age 92, and breast cancer in maternal grandmother at age 35. Benign left mammotome panel of the left breast, December 27, 2011. Benign excisional biopsy of the right breast, 1996. Physical Findings: A clinical breast exam by your physician is recommended on an annual basis and results should be correlated with mammographic findings. MG Screening Mammo w CAD Bilateral CC and MLO view(s) were taken. Prior study comparison: May 15, 2018, bilateral MG diagnostic mammo w CAD SERGIO. December 22, 2016, left breast MG work up mamm w CAD LT. No significant changes when compared with prior studies. ASSESSMENT: Benign, BI-RAD 2 RECOMMENDATION: Routine screening mammogram of both breasts in 1 year.
== END | disposition home or self-care (01) ==
LOC: RADMAMWWP 14:50
PROVIDERS: ATTEND Family Medicine
DX: Z12.31 Encounter for screening mammogram for malignant neoplasm of breast (principal); Z78.0 Asymptomatic menopausal state; Z80.3 Family history of malignant neoplasm of breast
CPT/HCPCS: 77067

== ENCOUNTER → 2020-12-22 | Outpatient (CLI) | payer OTHER ==
--- NOTE | 2020-12-22 13:40 | XR ---
EXAMINATION TYPE: XR thoraco lumbar junction DATE OF EXAM: 12/22/2020 COMPARISON: NONE HISTORY: Pain TECHNIQUE: AP and lateral views of the thoracolumbar spine are submitted. FINDINGS: There is mild degenerative narrowing noted at the thoracolumbar spine with mild spur format ion seen. The remaining levels visualized are within normal limits. No fracture or malalignment. IMPRESSION: Mild degenerative change.
--- NOTE | 2020-12-25 13:17 | MM ---
Reason for exam: screening (asymptomatic). Last mammogram was performed 1 year and 4 months ago. History: Patient is postmenopausal and has history of other cancer at age 49. Family history of breast cancer in maternal aunt at age 75, breast cancer in paternal grandmother at age 92, and breast cancer in maternal grandmother at age 35. Benign left mammotome panel of the left breast, December 27, 2011. Benign excisional biopsy of the right breast, 1996. Physical Findings: A clinical breast exam by your physician is recommended on an annual basis and results should be correlated with mammographic findings. MG Screening Mammo w CAD Bilateral CC and MLO view(s) were taken. Prior study comparison: August 27, 2019, bilateral MG screening mammo w CAD. May 15, 2018, bilateral MG diagnostic mammo w CAD SERGIO. There are scattered fibroglandular densities. Previous mammotome biopsy in the left breast. There is chronic nodularity in the right breast. No significant changes when compared with prior studies. ASSESSMENT: Benign, BI-RAD 2 RECOMMENDATION: Routine screening mammogram of both breasts in 1 year.
== END | disposition home or self-care (01) ==
LOC: RADMAMWWP 13:07
PROVIDERS: ATTEND Family Medicine
DX: Z12.31 Encounter for screening mammogram for malignant neoplasm of breast (principal); M47.25 Other spondylosis with radiculopathy, thoracolumbar region
CPT/HCPCS: 72080; 77067

== ENCOUNTER 2021-03-06 18:30 | Emergency (ER) | payer OTHER ==
[2021-03-06 19:04] VITALS: BP 160/97; PULSE 82; RESP 18; TEMP 97.8
--- NOTE | 2021-03-06 19:51 | XR ---
EXAMINATION TYPE: XR chest 2V DATE OF EXAM: 03/06/2021 COMPARISON: 07/16/2019 HISTORY: Chest pain TECHNIQUE: FINDINGS: Heart and mediastinum are normal. Lungs are clear. Diaphragm is normal. Bony thorax appears normal. IMPRESSION: Normal chest. No change.
[2021-03-06] MEDS ORDERED: diphenhydrAMINE 50 MG CAP PO STA (20:00)
--- NOTE | 2021-03-06 20:02 | ED ---
Headache HPI - General Mode of arrival: ambulatory Limitations: no limitations <Mario Watts - Last Filed: 03/06/21 22:25> <Leanna Bowling - Last Filed: 03/09/21 02:05> - General Chief Complaint: Headache Stated Complaint: headache/weak/achy/sob/Post vacc Time Seen by Provider: 03/06/21 19:55 - History of Present Illness Initial Comments: 51-year-old male presents to the emergency department with a chief complaint of body aches and fatigue. Patient reports 8 days ago she has received the Miah & Miah Covid vaccine. Patient reports after she had the vaccine, she was relatively asymptomatic but over the last 3 days she has developed generalized body aches with fatigue. Patient reports having decreased appetite. She also reports arthralgias and is pending most of the day in bed. She does report chills but no fevers at home. Denies any cough. She does report occasional exertional dyspnea but denies any chest pain. Patient is also reporting a gradual onset frontal headache that is not the worst headache of her life. Denies any photosensitivity, nausea, vomiting or diarrhea. (Mario Watts) - Related Data Home Medications Medication Instructions Recorded Confirmed ALPRAZolam [Xanax] 0.25 mg PO DAILY PRN 04/27/17 07/16/19 Hydrocodone/Acetaminophen [[place] 0.5 tab PO DAILY PRN 07/16/19 07/16/19 7.5-325] Previous Rx's Medication Instructions Recorded Atorvastatin Calcium [Lipitor] 20 mg PO HS #30 tab 07/17/19 Allergies Allergy/AdvReac Type Severity Reaction Status Date / Time No Known Allergies Allergy Verified 03/06/21 19:04 Review of Systems ROS Other: All systems not noted in ROS Statement are negative. <Mario Watts - Last Filed: 03/06/21 22:25> ROS Other: All systems not noted in ROS Statement are negative. <Leanna Bowling - Last Filed: 03/09/21 02:05> ROS Statement: Those systems with pertinent positive or pertinent negative responses have been documented in the HPI. Past Medical History Past Medical History: CVA/TIA History of Any Multi-Drug Resistant Organisms: None Reported Additional Past Surgical History / Comment(s): cyst removed Past Anesthesia/Blood Transfusion Reactions: Postoperative Nausea & Vomiting (PONV) Past Psychological History: No Psychological Hx Reported Smoking Status: Former smoker Past Alcohol Use History: Rare Past Drug Use History: Marijuana - Past Family History Mother Additional Family Medical History / Comment(s): ovarian cancer <Mario Watts - Last Filed: 03/06/21 22:25> General Exam Limitations: no limitations General appearance: alert, in no apparent distress Head exam: Present: atraumatic, normocephalic, normal inspection Eye exam: Present: normal appearance, PERRL, EOMI Pupils: Present: normal accommodation ENT exam: Present: normal exam, normal oropharynx, mucous membranes moist, TM's normal bilaterally, normal external ear exam Neck exam: Present: normal inspection, full ROM. Absent: tenderness Respiratory exam: Present: normal lung sounds bilaterally. Absent: respiratory distress, wheezes, rales, rhonchi, stridor, chest wall tenderness, accessory mu scle use Cardiovascular Exam: Present: regular rate, normal rhythm, normal heart sounds GI/Abdominal exam: Present: soft. Absent: distended, tenderness, guarding, rebound Extremities exam: Present: normal inspection, full ROM, normal capillary refill. Absent: tenderness, pedal edema, joint swelling Back exam: Present: normal inspection, full ROM. Absent: tenderness, CVA tenderness (R), CVA tenderness (L) Neurological exam: Present: alert, oriented X3, normal gait Psychiatric exam: Present: normal affect, normal mood. Absent: depressed, agit ated Skin exam: Present: warm, dry, intact, normal color <Mario Watts - Last Filed: 03/06/21 22:25> Course Vital Signs 03/06/21 19:00 Temperature 97.8 F Pulse Rate 82 Respiratory 18 Rate Blood Pressure 160/97 O2 Sat by Pulse 99 Oximetry Medical Decision Making - Lab Data Result diagrams: 03/06/21 21:21 03/06/21 21:21 <Mario Watts - Last Filed: 03/06/21 22:25> - Lab Data Result diagrams: 03/06/21 21:21 03/06/21 21:21 <Leanna Bowling - Last Filed: 03/09/21 02:05> - Medical Decision Making 51-year-old female presents to the emergency department with a chief complaint of cough congestion body aches and fatigue. On physical examination, patient appears to be not in any respiratory distress. Vital signs are within normal limits. Chest x-ray unremarkable. She did test positive for cold. Patient was concerned for a possible PE because she is currently undergoing testing for elevated platelet levels by an oncologist. Due to elevated risk for potential PEs to the Miah & Miah vaccine, laboratory work was obtained. D-dimer within normal limits. Rest of the laboratory work is unremarkable. Coag negative. Patient will be discharged with an outpatient follow-up. Return parameters discussed. Case discussed with (Mario Watts) I was available for consultation in the emergency department. The history and physical exam were done by the midlevel provider. I was consulted for this patients care. I reviewed the case with the midlevel provider and based on their presentation of the patient, I agree with the assessment, medical decision making and plan of care as documented. Chart was dictated using [employer] dictation software. Attempts were made to correct any dictation errors however some typographical errors may persist. Patient was seen during a national state of emergency due to the Covid-19 pandemic. (Leanna Bowling) - Lab Data Lab Results 03/06/21 03/06/21 03/06/21 Range/Units 19:04 21:21 21:21 WBC 8.4 (3.8-10.6) k/uL RBC 4.82 (3.80-5.40) m/uL Hgb 14.1 (11.4-16.0) gm/dL Hct 41.6 (34.0-46.0) % MCV 86.2 (80.0-100.0) fL MCH 29.2 (25.0-35.0) pg MCHC 33.8 (31.0-37.0) g/dL RDW 12.9 (11.5-15.5) % Plt Count 452 H (150-450) k/uL MPV 6.6 Neutrophils % 60 % Lymphocytes % 33 % Monocytes % 4 % Eosinophils % 1 % Basophils % 1 % Neutrophils # 5.0 (1.3-7.7) k/uL Lymphocytes # 2.7 (1.0-4.8) k/uL Monocytes # 0.3 (0-1.0) k/uL Eosinophils # 0.1 (0-0.7) k/uL Basophils # 0.1 (0-0.2) k/uL PT 11.0 (9.0-12.0) sec INR 1.0 (<1.2) APTT 25.0 (22.0-30.0) sec D-Dimer 0.20 (<0.60) mg/L FEU Sodium (137-145) mmol/L Potassium (3.5-5.1) mmol/L Chloride (98-107) mmol/L Carbon Dioxide (22-30) mmol/L Anion Gap mmol/L BUN (7-17) mg/dL Creatinine (0.52-1.04) mg/dL Est GFR (CKD-EPI)AfAm (>60 ml/min/1.73 sqM) Est GFR (CKD-EPI)NonAf (>60 ml/min/1.73 sqM) Glucose (74-99) mg/dL Calcium (8.4-10.2) mg/dL Magnesium (1.6-2.3) mg/dL Total Bilirubin (0.2-1.3) mg/dL AST (14-36) U/L ALT (4-34) U/L Alkaline Phosphatase (38-126) U/L Troponin I (0.000-0.034) ng/mL Total Protein (6.3-8.2) g/dL Albumin (3.5-5.0) g/dL Coronavirus (PCR) Not Detected (Not Detectd) 03/06/21 03/06/21 Range/Units 21:21 21:21 WBC (3.8-10.6) k/uL RBC (3.80-5.40) m/uL Hgb (11.4-16.0) gm/dL Hct (34.0-46.0) % MCV (80.0-100.0) fL MCH (25.0-35.0) pg MCHC (31.0-37.0) g/dL RDW (11.5-15.5) % Plt Count (150-450) k/uL MPV Neutrophils % % Lymphocytes % % Monocytes % % Eosinophils % % Basophils % % Neutrophils # (1.3-7.7) k/uL Lymphocytes # (1.0-4.8) k/uL Monocytes # (0-1.0) k/uL Eosinophils # (0-0.7) k/uL Basophils # (0-0.2) k/uL PT (9.0-12.0) sec INR (<1.2) APTT (22.0-30.0) sec D-Dimer (<0.60) mg/L FEU Sodium 140 (137-145) mmol/L Potassium 4.5 (3.5-5.1) mmol/L Chloride 102 (98-107) mmol/L Carbon Dioxide 30 (22-30) mmol/L Anion Gap 8 mmol/L BUN 22 H (7-17) mg/dL Creatinine 0.85 (0.52-1.04) mg/dL Est GFR (CKD-EPI)AfAm >90 (>60 ml/min/1.73 sqM) Est GFR (CKD-EPI)NonAf 79 (>60 ml/min/1.73 sqM) Glucose 103 H (74-99) mg/dL Calcium 9.9 (8.4-10.2) mg/dL Magnesium 2.0 (1.6-2.3) mg/dL Total Bilirubin 0.5 (0.2-1.3) mg/dL AST 27 (14-36) U/L ALT 23 (4-34) U/L Alkaline Phosphatase 97 (38-126) U/L Troponin I <0.012 (0.000-0.034) ng/mL Total Protein 8.0 (6.3-8.2) g/dL Albumin 4.9 (3.5-5.0) g/dL Coronavirus (PCR) (Not Detectd) - EKG Data EKG Comments: Sinus rhythm with no acute ischemic changes Ventricular rate 63, IL 118, QRS 88, QTC 444. (aMrio Wtats) Disposition Is patient prescribed a controlled substance at d/c from ED?: No Time of Disposition: 22:28 <Mario Watts - Last Filed: 03/06/21 22:25> <Leanna Bowling - Last Filed: 03/09/21 02:05> Clinical Impression: Fatigue, Myalgia, Arthralgia Disposition: HOME SELF-CARE Condition: Stable Instructions (If sedation given, give patient instructions): Coronavirus Disease 2019 (COVID-19) Additional Instructions: Please return to the Emergency Department if symptoms worsen or any other concerns. Referrals: Lincoln King MD [Primary Care Provider] - 1-2 days
[2021-03-06 21:31] LABS: Basophils # (A) 0.1 k/uL (0-0.2); Basophils % (A) 1 %; Eosinophils # (A) 0.1 k/uL (0-0.7); Eosinophils % (A) 1 %; HCT 41.6 % (34.0-46.0); HGB 14.1 gm/dL (11.4-16.0); Lymphocytes # (A) 2.7 k/uL (1.0-4.8); Lymphocytes % (A) 33 %; MCH 29.2 pg (25.0-35.0); MCHC 33.8 g/dL (31.0-37.0); MCV 86.2 fL (80.0-100.0); Mean Platelet Volume 6.6; Monocytes # (A) 0.3 k/uL (0-1.0); Monocytes % (A) 4 %; Neutrophils % (A) 60 %; Platelet Count 452 k/uL (150-450); RBC 4.82 m/uL (3.80-5.40); RDW 12.9 % (11.5-15.5); WBC 8.4 k/uL (3.8-10.6)
[2021-03-06 21:49] LABS: ALT 23 U/L (4-34); AST 27 U/L (14-36); African American GFR (CKD) >90 (>60 ml/min/1.73 sqM); Albumin 4.9 g/dL (3.5-5.0); Alkaline Phosphatase 97 U/L (38-126); Anion Gap 8 mmol/L; Blood Urea Nitrogen 22 mg/dL (7-17); Calcium 9.9 mg/dL (8.4-10.2); Carbon Dioxide 30 mmol/L (22-30); Chloride 102 mmol/L (98-107); Glucose 103 mg/dL (74-99); Non-African American GFR(CKD) 79 (>60 ml/min/1.73 sqM); Potassium 4.5 mmol/L (3.5-5.1); Sodium 140 mmol/L (137-145); Total Bilirubin 0.5 mg/dL (0.2-1.3)
[2021-03-06 22:13] LABS: D-Dimer 0.2 mg/L FEU (<0.60)
== END 2021-03-06 22:42 | disposition home or self-care (01) ==
LOC: EC 18:30
DX: R53.83 Other fatigue (principal); M25.50 Pain in unspecified joint; M79.10 Myalgia, unspecified site; Z20.822 Contact with and (suspected) exposure to COVID-19
CPT/HCPCS: 36415; 71046; 80053; 83735; 84484; 85025; 85379; 85610; 85730; 87635; 93005; 99285

== ENCOUNTER → 2022-04-05 | Outpatient (CLI) | payer OTHER ==
--- NOTE | 2022-04-06 10:55 | MM ---
Reason for Exam: Screening (asymptomatic). Last mammogram was performed 1 year(s) and 3 month(s) ago. Patient History: Menarche at age 14. First Full-Term at age 26. Postmenopausal. Other cancer, age 49. Previous chemotherapy at age 52. 1996, Benign Excisional Biopsy on the right side. 12/27/2011, Benign Core Biopsy on the left side. Paternal grandmother had breast cancer, age 92. Maternal grandmother had breast cancer, age 35. Maternal aunt had breast cancer, age 75. Mother had ovarian cancer, age 75. Risk Values: Pamela 5 year model risk: 1.7%. NCI Lifetime model risk: 12.7%. Film Views: Bilateral CC views were taken. Bilateral MLO views were taken. Prior Study Comparison: 05/15/2018 Bilateral Diagnostic Mammogram, [facility]. 08/27/2019 Bilateral Screening Mammogram, [facility]. 12/22/2020 Bilateral Screening Mammogram, [facility]. Tissue Density: There are scattered fibroglandular densities. Findings: Analyzed By CAD. No significant changes when compared with prior studies. Previous mammotome biopsy within the left breast. Chronic nodularity bilaterally. Overall Assessment: Benign, BI-RAD 2 Management: Screening Mammogram of both breasts in 1 year.
== END | disposition home or self-care (01) ==
LOC: RADMAMWWP 12:24
PROVIDERS: ATTEND Family Medicine
DX: Z12.31 Encounter for screening mammogram for malignant neoplasm of breast (principal); Z78.0 Asymptomatic menopausal state; Z80.3 Family history of malignant neoplasm of breast; Z80.41 Family history of malignant neoplasm of ovary
CPT/HCPCS: 77067

== ENCOUNTER → 2023-04-11 | Outpatient (CLI) | payer OTHER ==
--- NOTE | 2023-04-11 15:39 | XR ---
EXAMINATION TYPE: XR thoracic spine 2V DATE OF EXAM: 04/11/2023 2:01 PM INDICATION: Patient age:Female; 53 years old; Reason for study: M54.6; COMPARISON: 03/06/2021 TECHNIQUE: 2 views of the thoracic spine in Frontal and lateral projections. FINDINGS: No evidence of acute fracture. There is scattered multilevel disk space narrowing without loss of ve rtebral body height. There is normal alignment of the thoracic vertebral bodies. Scattered osteophyte formation along the anterior and lateral aspects of the vertebral bodies. Neural foramen are patent given limitations of this exam. Spinal canal appears patent. IMPRESSION: 1. No acute osseous pathology. 2. Mild multilevel disc degeneration changes.
--- NOTE | 2023-04-12 10:31 | MM ---
Reason for Exam: Screening (asymptomatic). Last screening mammogram was performed 12 month(s) ago. Patient History: Menarche at age 14. First Full-Term at age 26. Postmenopausal. Other cancer, age 49. Previous chemotherapy at age 52. 1996, Benign Excisional Biopsy on the right side. 12/27/2011, Benign Core Biopsy on the left side. Paternal grandmother had breast cancer, age 92. Maternal grandmother had breast cancer, age 35. Maternal aunt had breast cancer, age 75. Mother had ovarian cancer, age 75. Risk Values: Pamela 5 year model risk: 1.7%. NCI Lifetime model risk: 12.4%. Prior Study Comparison: 08/27/2019 Bilateral Screening Mammogram, [facility]. 12/22/2020 Bilateral Screening Mammogram, [facility]. 04/05/2022 Bilateral MG screening mammo w CAD, [facility]. Tissue Density: There are scattered fibroglandular densities. Findings: Analyzed By CAD. Stable 4 mm circumscribed oval mass in the upper outer quadrant right breast. Posterior biopsy clip in the left breast is redemonstrated. There is no suspicious new group of microcalcifications or new suspicious mass in either breast. Overall Assessment: Benign, BI-RAD 2 Management: Screening Mammogram of both breasts in 1 year. . Patient should continue monthly self-breast exams. A clinical breast exam by your physician is recommended on an annual basis. This exam should not preclude additional follow-up of suspicious palpable abnormalities. Note on Pamela scores and lifetime risk: 1. A Pamela score greater than 3% is considered moderate risk. If this is the case, consider specialist referral to assess eligibility for a risk reducing agent. 2. If overall lifetime risk for the development of breast cancer is 20% or higher, the patient may qualify for future screening with alternating mammogram and breast MRI. Electronically signed and approved by: Bubba Devries M.D.
== END | disposition home or self-care (01) ==
LOC: RADMAMWWP 13:18
PROVIDERS: ATTEND Family Medicine
DX: Z12.31 Encounter for screening mammogram for malignant neoplasm of breast (principal); M51.24 Other intervertebral disc displacement, thoracic region; Z80.3 Family history of malignant neoplasm of breast; Z78.0 Asymptomatic menopausal state
CPT/HCPCS: 72070; 77067

== ENCOUNTER → 2024-04-16 | Outpatient (CLI) | payer BC ==
--- NOTE | 2024-04-16 18:00 | MM ---
Reason for Exam: Screening (asymptomatic). Last screening mammogram was performed 12 month(s) ago. Patient History: Menarche at age 14. First Full-Term at age 26. Postmenopausal. Other cancer, age 49. Previous chemotherapy at age 52. 1996, Benign Excisional Biopsy on the right side. 12/27/2011, Benign Core Biopsy on the left side. Paternal grandmother had breast cancer, age 92. Maternal grandmother had breast cancer, age 35. Maternal aunt had breast cancer, age 75. Mother had ovarian cancer, age 75. Risk Values: Pamela 5 year model risk: 1.8%. NCI Lifetime model risk: 12.2%. Prior Study Comparison: 12/22/2020 Bilateral Screening Mammogram, [facility]. 04/05/2022 Bilateral MG screening mammo w CAD, [facility]. 04/11/2023 Bilateral MG screening mammo w CAD, [facility]. Tissue Density: There are scattered areas of fibroglandular density. Findings: Analyzed By CAD. The pattern is symmetrical. Pattern appears symmetrical and stable. No significant interval change is evident. Core markers within the left breast No suspicious groups of microcalcifications, spiculated or lobular masses, architectural distortion or other secondary signs of malignancy are mammographically apparent. Overall Assessment: Benign, BI-RAD 2 Management: Screening Mammogram of both breasts in 1 year. A negative mammogram report should not preclude additional follow up of suspicious palpable abnormalities. Patient should continue monthly self breast exam. A clinical breast exam by your physician is recommended on an annual basis and results should be correlated with mammographic findings. Note on Pamela scores and lifetime risk: 1. A Pamela score greater than 3% is considered moderate risk. If this is the case, consider specialist referral to assess eligibility for a risk reducing agent. 2. If overall lifetime risk for the development of breast cancer is 20% or higher, the patient may qualify for future screening with alternating mammogram and breast MRI. Electronically signed and approved by: Tayo De Santiago D.O. Radiologis
== END | disposition home or self-care (01) ==
LOC: RADMAMWWP 09:57
PROVIDERS: ATTEND Family Medicine
DX: Z12.31 Encounter for screening mammogram for malignant neoplasm of breast (principal); Z78.0 Asymptomatic menopausal state; Z80.3 Family history of malignant neoplasm of breast
CPT/HCPCS: 77067

== ENCOUNTER → 2024-08-06 | Outpatient (CLI) | payer BC, OTHER ==
[2024-08-06 15:42] LABS: ALT 25 U/L (8-44); AST 24 U/L (13-35)
== END | disposition home or self-care (01) ==
LOC: LABWHC1 08:51
PROVIDERS: ATTEND Family Medicine
DX: R79.89 Other specified abnormal findings of blood chemistry (principal)
CPT/HCPCS: 36415; 84450; 84460